=== PATIENT | male | born 1945 | race African-American/Black ===

== ENCOUNTER 2017-01-05 11:45 | Emergency (ER) | payer MEDICARE, OTHER ==
[~2017-01-05] VITALS: Ht 188 cm; Wt 89.8 kg
[2017-01-05 13:56] LABS: APPEARANCE,URINE SLIGHTLY CLOUDY; KETONES,URINE NEGATIVE (NEGATIVE); LEUKOCYTE ESTERASE ,URINE 1+ (NEGATIVE); NITRITE,URINE NEGATIVE (NEGATIVE); PH,URINE 8 (4.5-8.0); PROTEIN,URINE NEGATIVE (NEGATIVE); UROBILINOGEN,URINE NORMAL MG/DL (0.0-1.0)
[2017-01-05 14:04] LABS: BACTERIA,URINE FEW /HPF; RBC,URINE 30-40 /HPF (0 - 0); SQUAMOUS EPITHELIAL CELL,UR OCCASIONAL /LPF (NONE/OCC)
--- NOTE | 2017-01-05 14:10 | Emergency Room Report ---
History of Present Illness General Chief Complaint: Male Urogenital Problems Source: Patient, Family Member Present Illness HPI This patient states that he has had difficulty urinating. He is on home hospice. He denies fever or chills. He denies nausea or vomiting. He has had dysuria but no hematuria. He denies abdominal pain. He denies a sensation of fullness in his lower abdomen. He has no other complaints. Patient History Past Medical History: see triage record, dementia Social History: Denies: smoking, alcohol use, drug use Reviewed Nursing Documentation: PMH: Agreed, PSxH: Agreed Review of Systems All Other Systems: negative except mentioned in HPI Physical Exam Sp02 EP Interpretation: reviewed, normal General Appearance: no apparent distress, alert, GCS 15, non-toxic Head: normocephalic, atraumatic Eyes: bilateral eye normal inspection, bilateral eye PERRL ENT: hearing grossly normal, normal pharynx, no angioedema, normal voice Neck: full range of motion, supple/symm/no masses Respiratory: chest non-tender, lungs clear, normal breath sounds, speaking full sentences Cardiovascular #1: regular rate, rhythm, no edema Gastrointestinal: normal bowel sounds, non tender, soft, non-distended, no guarding, no rebound Rectal: deferred Musculoskeletal: back normal, gait/station normal, normal range of motion, non- tender Neurologic: alert, responsive, motor strength/tone normal, sensory intact, speech normal Psychiatric: mood/affect normal, no suicidal/homicidal ideation Skin: normal color, no rash, warm/dry, well hydrated Medical Decision Making Diagnostic Impression: Primary Impression: Urinary hesitancy ER Course This patient presents with urinary hesitancy. I had planned to place a Escamilla catheter, however, when the nurse was attempting to place the catheter the patient had the sensation to urinate and was able to urinate without difficulty. There was no bladder fullness and no evidence of infection on urinalysis. Likely this patient has an enlarged prostate. I will start the patient on Flomax. The patient is instructed to followup with his primary care physician. Laboratory Tests Test 01/05/17 13:18 Urine Color Pale yellow Urine Appearance Slightly cloudy Urine pH 8 (4.5-8.0) Urine Specific [place] 1.010 (1.005-1.035) Urine Protein Negative (NEGATIVE) Urine Glucose (UA) Negative (NEGATIVE) Urine Ketones Negative (NEGATIVE) Urine Occult Blood 5+ (NEGATIVE) H Urine Nitrite Negative (NEGATIVE) Urine Bilirubin Negative (NEGATIVE) Urine Urobilinogen Normal MG/DL (0.0-1.0) Urine Leukocyte Esterase 1+ (NEGATIVE) H Urine RBC 30-40 /HPF (0 - 0) H Urine WBC 2-4 /HPF (0 - 0) Urine Squamous Epithelial Cells Occasional /LPF Urine Bacteria Few /HPF (NONE) Disposition: HOME, SELF-CARE Condition: Improved Referrals: NON PHYSICIAN (PCP) JUAN PABLO ANSARI D.O. Jan 05, 2017 14:10
[2017-01-05] MEDS ORDERED: FLOMAX0.4 MG ORAL (14:21)
[2017-01-05 14:48] VITALS: BP 126/84
== END 2017-01-05 14:48 | disposition home or self-care (01) ==
LOC: EMR 13:07
DX: R39.11 Hesitancy of micturition (principal)
CPT/HCPCS: 51702; 81001; 99283

== ENCOUNTER 2018-10-14 14:25 | Inpatient (IN) | payer MEDICARE, OTHER ==
[~2018-10-14] VITALS: Ht 185.4 cm; Wt 89.4 kg
[~2018-10-14 14:25] MED LIST: FLOMAX0.4 MG ORAL
--- NOTE | 2018-10-14 14:33 | Emergency Room Report ---
History of Present Illness General Chief Complaint: Syncope Source: EMS Present Illness HPI 73-year-old male possible history of hypertension, TIA, Alzheimer's, dementia presents with presyncopal episode prior to arrival, patient was witnessed by his , patient sat himself down when he was about to pass out, he did not hit his head, no official LOC, this lasted minutes, his called 911, no known aggravating or alleviating factors, no known pain. Patient is noncommunicative, reports that he is a little more altered than usual Allergies: Coded Allergies: No Known Allergies (Unverified , 10/14/18) Patient History Limited by: medical condition - Dementia Past Medical History: see triage record Reviewed Nursing Documentation: PMH: Agreed; PSxH: Agreed Nursing Documentation-PMH Past Medical History: No History, Except For Hx Cardiac Problems: No Hx Hypertension: No Hx Pacemaker: No Hx Asthma: No Hx COPD: No Hx Diabetes: No Hx Cancer: No Hx Gastrointestinal Problems: No Hx Dialysis: No Hx Neurological Problems: Yes - Alzheimers and dementia Hx Cerebrovascular Accident: No Hx Seizures: No Review of Systems All Other Systems: limited - Demented Physical Exam Vital Signs Date Time Temp Pulse Resp B/P (MAP) Pulse Ox O2 Delivery O2 Flow Rate FiO2 10/14/18 14:19 97.5 85 20 119/84 (96) 98 Room Air Sp02 EP Interpretation: reviewed, normal General Appearance: well appearing, no apparent distress, alert Head: normocephalic, atraumatic Eyes: bilateral eye PERRL, bilateral eye EOMI ENT: uvula midline, moist mucus membranes Neck: supple, thyroid normal, supple/symm/no masses Respiratory: lungs clear, no respiratory distress, no retraction, no accessory muscle use Cardiovascular #1: normal peripheral pulses, regular rate, rhythm, no edema, no gallop, no murmur Gastrointestinal: non tender, soft, no guarding, no rebound Musculoskeletal: normal inspection Neurologic: alert, other - Moving all 4 extremities Psychiatric: mood/affect normal Skin: no rash, warm/dry Medical Decision Making Diagnostic Impression: Primary Impression: Syncope Additional Impression: Non-ST elevation GA (NSTEMI) ER Course 73-year-old male presents with presyncopal episode, EKG shows no focal findings , patient found to have an elevated troponin, Lovenox was given, aspirin was given, patient with a possible UTI ceftriaxone was given, patient will be admitted to the hospital for hemodynamic monitoring and telemetry telemetry. Patient endorsed to Dr. Pope Laboratory Tests Test 10/14/18 15:00 White Blood Count 5.6 K/UL (4.8-10.8) Red Blood Count 4.96 M/UL (4.70-6.10) Hemoglobin 15.5 G/DL (14.2-18.0) Hematocrit 45.5 % (42.0-52.0) Mean Corpuscular Volume 92 FL (80-99) Mean Corpuscular Hemoglobin 31.2 PG (27.0-31.0) H Mean Corpuscular Hemoglobin Concent 34.0 G/DL (32.0-36.0) Red Cell Distribution Width 11.6 % (11.6-14.8) Platelet Count 192 K/UL (150-450) Mean Platelet Volume 6.0 FL (6.5-10.1) L Neutrophils (%) (Auto) 66.3 % (45.0-75.0) Lymphocytes (%) (Auto) 21.7 % (20.0-45.0) Monocytes (%) (Auto) 10.6 % (1.0-10.0) H Eosinophils (%) (Auto) 0.2 % (0.0-3.0) Basophils (%) (Auto) 1.2 % (0.0-2.0) Prothrombin Time 11.9 SEC (9.30-11.50) H Prothrombin Time INR 1.1 (0.9-1.1) PTT 29 SEC (23-33) Urine Color Yellow Urine Appearance Slightly cloudy Urine pH 6 (4.5-8.0) Urine Specific [place] 1.020 (1.005-1.035) Urine Protein 1+ (NEGATIVE) H Urine Glucose (UA) Negative (NEGATIVE) Urine Ketones Negative (NEGATIVE) Urine Blood 1+ (NEGATIVE) H Urine Nitrite Negative (NEGATIVE) Urine Bilirubin Negative (NEGATIVE) Urine Urobilinogen Normal MG/DL (0.0-1.0) Urine Leukocyte Esterase 1+ (NEGATIVE) H Urine RBC 2-4 /HPF (0 - 0) H Urine WBC 0-2 /HPF (0 - 0) Urine Squamous Epithelial Cells Few /LPF (NONE/OCC) Urine Bacteria Few /HPF (NONE) Sodium Level 142 MMOL/L (136-145) Potassium Level 3.9 MMOL/L (3.5-5.1) Chloride Level 106 MMOL/L (98-107) Carbon Dioxide Level 25 MMOL/L (21-32) Anion Gap 11 mmol/L (5-15) Blood Urea Nitrogen 12 mg/dL (7-18) Creatinine 1.2 MG/DL (0.55-1.30) Estimate Glomerular Filtration Rate mL/min (>60) Glucose Level 108 MG/DL (74-106) H Calcium Level 9.9 MG/DL (8.5-10.1) Total Bilirubin 0.6 MG/DL (0.2-1.0) Aspartate Amino Transferase (AST) 19 U/L (15-37) Alanine Aminotransferase (ALT) 21 U/L (12-78) Alkaline Phosphatase 67 U/L (46-116) Total Creatine Kinase 114 U/L (26-308) Creatine Kinase MB 0.5 NG/ML (0.0-3.6) Creatine Kinase MB Relative Index 0.4 Troponin I 0.122 ng/mL (0.000-0.056) Pro-B-Type Natriuretic Peptide 24 pg/mL (0-125) Total Protein 8.1 G/DL (6.4-8.2) Albumin 3.7 G/DL (3.4-5.0) Globulin 4.4 g/dL Albumin/Globulin Ratio 0.8 (1.0-2.7) L Lipase 77 U/L (73-393) EKG Diagnostic Results EKG Time: 14:42 EP Interpretation: NSR rate 83 qtc 415, normal axis, no acute st elevations Rate: normal Rhythm: NSR ST Segments: no acute changes Rhythm Strip Diag. Results Rhythm Strip Time: 14:39 EP Interpretation: yes Rate: 84 Rhythm: NSR, no PVC's, no ectopy Last Vital Signs Date Time Temp Pulse Resp B/P (MAP) Pulse Ox O2 Delivery O2 Flow Rate FiO2 10/14/18 14:19 97.5 85 20 119/84 (96) 98 Room Air Disposition: ADMITTED INPATIENT Condition: Improved Dakota Hill M.D. Oct 14, 2018 14:33
[2018-10-14] MEDS ORDERED: FLOMAX0.4 MG ORAL (14:35)
[2018-10-14] MEDS ORDERED: CELEXA20 MG ORAL (14:35)
[2018-10-14] MEDS ORDERED: trazadone (14:35)
[2018-10-14] MEDS ORDERED: ASPIRIN81 MG ORAL (14:35)
[2018-10-14 14:49] VITALS: BP 119/84
--- NOTE | 2018-10-14 14:50 | NUR ---
ED Nurse Note:pt. was BIBA from home he had syncopal episode while walking, VSS no signs of distress, pt. is confused, placed on athletic monitor, blood sent to labs
--- NOTE | 2018-10-14 15:02 | NUR ---
ED Nurse Note:urine sent to labs, pt. went to CT scan
[2018-10-14 15:27] LABS: APPEARANCE,URINE SLIGHTLY CLOUDY; BILIRUBIN, URINE NEGATIVE (NEGATIVE); GLUCOSE, URINE (UA) NEGATIVE (NEGATIVE); KETONES,URINE NEGATIVE (NEGATIVE); LEUKOCYTE ESTERASE ,URINE 1+ (NEGATIVE); NITRITE,URINE NEGATIVE (NEGATIVE); PH,URINE 6 (4.5-8.0); PROTEIN,URINE 1+ (NEGATIVE); UROBILINOGEN,URINE NORMAL MG/DL (0.0-1.0)
[2018-10-14 15:28] LABS: INR 1.1 (0.9-1.1)
[2018-10-14 15:30] LABS: COLOR,URINE YELLOW
--- NOTE | 2018-10-14 15:30 | Diagnostic Imaging Report ---
Indication: Syncope Technique: Contiguous 5 mm thick transaxial imaging of the head obtained in a Siemens Sensation [address] scanner. Soft tissue and bone windows generated. Automatic Exposure Control was utilized. Total Dose length Product (DLP): 1375.[address] Dose Index Volume (CTDIvol): 70.38 mGy Comparison: none Findings: There is moderate prominence of the ventricles, basal cisterns, and cerebral sulci consistent with atrophy. Moderate, nonspecific, white matter hypoattenuation is noted throughout the brain consistent with chronic small vessel disease. There is no midline shift, edema, acute hemorrhage, mass effect, or abnormal extra-axial fluid collections. Bones are unremarkable. Impression: No acute intracranial bleed, mass effect or edema. Moderate atrophy of the brain. Evidence of chronic small vessel disease involving white matter tracts. The CT scanner at [facility] is accredited by the [employer] and the scans are performed using dose optimization techniques as appropriate to a performed exam including Automatic Exposure control.
[2018-10-14 15:32] LABS: BASOPHILS % (AUTO) 1.2 % (0.0-2.0); EOSINOPHILS % (AUTO) 0.2 % (0.0-3.0); HEMATOCRIT 45.5 % (42.0-52.0); HEMOGLOBIN 15.5 G/DL (14.2-18.0); LYMPHOCYTES % (AUTO) 21.7 % (20.0-45.0); MEAN CORPUSCULAR VOLUME 92 FL (80-99); MONOCYTES % (AUTO) 10.6 % (1.0-10.0); NEUTROPHILS % (AUTO) 66.3 % (45.0-75.0); PLATELET COUNT 192 K/UL (150-450); RED BLOOD COUNT 4.96 M/UL (4.70-6.10); RED CELL DISTRIBUTION WIDTH 11.6 % (11.6-14.8); WHITE BLOOD COUNT 5.6 K/UL (4.8-10.8)
--- NOTE | 2018-10-14 15:45 | Diagnostic Imaging Report ---
Indication: Dyspnea Comparison: None A single view chest radiograph was obtained. Findings: No definite infiltrate or pulmonary vascular congestion identified. The heart is borderline enlarged. The aorta is mildly enlarged consistent with atherosclerotic vascular disease. The bones are unremarkable. Impression: No acute disease
--- NOTE | 2018-10-14 15:50 | NUR ---
Lindsey Patient's [phone]
[2018-10-14 15:52] LABS: ANION GAP 11 mmol/L (5-15); BLOOD UREA NITROGEN 12 mg/dL (7-18); CALCIUM 9.9 MG/DL (8.5-10.1); CARBON DIOXIDE 25 MMOL/L (21-32); CHLORIDE 106 MMOL/L (98-107); CREATININE 1.2 MG/DL (0.55-1.30); POTASSIUM 3.9 MMOL/L (3.5-5.1); SODIUM 142 MMOL/L (136-145)
[2018-10-14 16:06] LABS: ALANINE AMINOTRANSFERASE 21 U/L (12-78); ALBUMIN 3.7 G/DL (3.4-5.0); ALBUMIN/GLOBULIN RATIO 0.8 (1.0-2.7); ALKALINE PHOSPHATASE 67 U/L (46-116); ASPARTATE AMINO TRANSFERASE 19 U/L (15-37); BILIRUBIN,TOTAL 0.6 MG/DL (0.2-1.0); CKMB 0.5 NG/ML (0.0-3.6); CREATINE KINASE 114 U/L (26-308)
[2018-10-14] MEDS ORDERED: Enoxaparin 100mg Inj SUBQ ONE (16:15)
--- NOTE | 2018-10-14 16:25 | NUR ---
ED Nurse Note: Patient at no distress at this time
[2018-10-14 16:27] VITALS: BP 113/82
[2018-10-14] MEDS ORDERED: cefTRIAXone 1 GM in NS 55 ML IVPB ONE (16:30)
--- NOTE | 2018-10-14 16:45 | NUR ---
TRANSFER TO FLOOR: Patient transferred to Telemetry as ordered, per . Report Given to NICOLE Dickerson
[2018-10-14] MEDS ORDERED: Enalaprilat 1.25mg/ml Inj IV PRN (17:15)
[2018-10-14] MEDS ORDERED: Morphine Sulfate 2mg/ml Inj(IV/IM USE ONLY) IVP PRN (17:15)
[2018-10-14] MEDS ORDERED: Nitroglycerin Subl 0.4mg tab SL PRN (17:15)
[2018-10-14] MEDS ORDERED: dilTIAZem HCl 25mg/5ml Inj IV PRN (17:15)
[2018-10-14] MEDS ORDERED: Albuterol/Ipratropium 3ml neb HHN PRN (17:15)
[2018-10-14] MEDS ORDERED: Miralax 17gm pkt ORAL PRN (17:15)
--- NOTE | 2018-10-14 19:22 | NUR ---
HAND-OFF: Report given to YANETH COSTA.
--- NOTE | 2018-10-14 19:25 | NUR ---
NURSE NOTES: Received report from Nikkie Anguiano RN. Patient in bed AAO X1-2 with episodes of confusion at times. No S/S of acute pain or discomfort noted. Kept clean, dry, and comfortable in bed. IV line intact and patent SL with continuous cardiac monitoring per protocol. Able to ambulate with assistance but offered to use bedside urinal instead. Needs and wants anticipated and attended. Will continue plan of care and monitor for any changes noted.
--- NOTE | 2018-10-14 19:31 | Cardiology Progress Note ---
Assessment/Plan Assessment/Plan [id number] ? syncope minor trop abn hs of vascualr dementia and tia repeat cardiaenzyme adn ekg and echo ivf will follow Objective Last 24 Hour Vital Signs Date Time Temp Pulse Resp B/P (MAP) Pulse Ox O2 Delivery O2 Flow Rate FiO2 10/14/18 17:45 Room Air 10/14/18 16:45 97.8 79 20 125/82 98 Room Air 10/14/18 16:27 97.5 76 20 113/82 98 Room Air 10/14/18 14:49 97.5 80 20 119/84 98 Room Air 10/14/18 14:19 97.5 85 20 119/84 (96) 98 Room Air Laboratory Tests Test 10/14/18 15:00 White Blood Count 5.6 K/UL (4.8-10.8) Red Blood Count 4.96 M/UL (4.70-6.10) Hemoglobin 15.5 G/DL (14.2-18.0) Hematocrit 45.5 % (42.0-52.0) Mean Corpuscular Volume 92 FL (80-99) Mean Corpuscular Hemoglobin 31.2 PG (27.0-31.0) H Mean Corpuscular Hemoglobin Concent 34.0 G/DL (32.0-36.0) Red Cell Distribution Width 11.6 % (11.6-14.8) Platelet Count 192 K/UL (150-450) Mean Platelet Volume 6.0 FL (6.5-10.1) L Neutrophils (%) (Auto) 66.3 % (45.0-75.0) Lymphocytes (%) (Auto) 21.7 % (20.0-45.0) Monocytes (%) (Auto) 10.6 % (1.0-10.0) H Eosinophils (%) (Auto) 0.2 % (0.0-3.0) Basophils (%) (Auto) 1.2 % (0.0-2.0) Prothrombin Time 11.9 SEC (9.30-11.50) H Prothromb Time International Ratio 1.1 (0.9-1.1) Activated Partial Thromboplast Time 29 SEC (23-33) Urine Color Yellow Urine Appearance Slightly cloudy Urine pH 6 (4.5-8.0) Urine Specific [place] 1.020 (1.005-1.035) Urine Protein 1+ (NEGATIVE) H Urine Glucose (UA) Negative (NEGATIVE) Urine Ketones Negative (NEGATIVE) Urine Blood 1+ (NEGATIVE) H Urine Nitrite Negative (NEGATIVE) Urine Bilirubin Negative (NEGATIVE) Urine Urobilinogen Normal MG/DL (0.0-1.0) Urine Leukocyte Esterase 1+ (NEGATIVE) H Urine RBC 2-4 /HPF (0 - 0) H Urine WBC 0-2 /HPF (0 - 0) Urine Squamous Epithelial Cells Few /LPF (NONE/OCC) Urine Bacteria Few /HPF (NONE) Sodium Level 142 MMOL/L (136-145) Potassium Level 3.9 MMOL/L (3.5-5.1) Chloride Level 106 MMOL/L (98-107) Carbon Dioxide Level 25 MMOL/L (21-32) Anion Gap 11 mmol/L (5-15) Blood Urea Nitrogen 12 mg/dL (7-18) Creatinine 1.2 MG/DL (0.55-1.30) Estimat Glomerular Filtration Rate mL/min (>60) Glucose Level 108 MG/DL (74-106) H Calcium Level 9.9 MG/DL (8.5-10.1) Total Bilirubin 0.6 MG/DL (0.2-1.0) Aspartate Amino Transf (AST/SGOT) 19 U/L (15-37) Alanine Aminotransferase (ALT/SGPT) 21 U/L (12-78) Alkaline Phosphatase 67 U/L (46-116) Total Creatine Kinase 114 U/L (26-308) Creatine Kinase MB 0.5 NG/ML (0.0-3.6) Creatine Kinase MB Relative Index 0.4 Troponin I 0.122 ng/mL (0.000-0.056) Pro-B-Type Natriuretic Peptide 24 pg/mL (0-125) Total Protein 8.1 G/DL (6.4-8.2) Albumin 3.7 G/DL (3.4-5.0) Globulin 4.4 g/dL Albumin/Globulin Ratio 0.8 (1.0-2.7) L Lipase 77 U/L (73-393) Ambrosio Chino MD Oct 14, 2018 19:31
[2018-10-14 20:00] VITALS: BP 117/83
--- NOTE | 2018-10-14 20:30 | NUR ---
NURSE NOTES: Trop lvl at 0.124 per Sada Reyes (Lab)
[2018-10-14] MEDS ORDERED: Heparin 5000 units/ml inj SUBQ SCH (21:00)
--- NOTE | 2018-10-14 22:00 | NUR ---
AMA: SEE AMA FORM. Explained risks and benefits, still insisted on leaving AMA. MD notified and aware.
--- NOTE | 2018-10-14 23:15 | Consultation ---
DATE OF CONSULTATION: 10/14/2018 CARDIAC CONSULTATION CONSULTING PHYSICIAN: Ambrosio Chino M.D. REFERRING PHYSICIAN: Shanna Ashby M.D. REASON FOR REFERRAL: Syncope. HISTORY OF PRESENT ILLNESS: This is an elderly gentleman who is really not able to provide any meaningful history. The patient is here with his who is providing most of the information. The patient with history of vascular dementia. A few weeks ago, he had a similar episode to what happened today, although it was not nearly as long or involvement of loss of consciousness. At that time, he was taken to [facility]. No workup was initiated, but they thought it was related to probably either a transient ischemic attack or part of his chronic recurrent vascular dementia. The patient today was walking to the bathroom and he suddenly became diaphoretic and fell on the floor and did not really hit his head anywhere. He was not responsive and he was almost completely out for a few minutes. His called the paramedics. The patient was diaphoretic and the patient was checked by paramedics and they picked him up, put him in a chair and eventually put him in a gurney, and brought him to the emergency room. [facility] run sheet unfortunately is not available for my review and information was obtained from discussion with the patient's and from review of the emergency room physician's notation. His blood pressure on arrival in the emergency room was 119/84 with heart rate of 85. According to his , when the paramedics checked him, there were no problems found, but they thought that they should take him to the hospital to get checked out. PAST MEDICAL HISTORY: Positive for history of prostatic enlargement, vascular dementia, and transient ischemic attacks. No history of diabetes, high blood pressure, heart attack, cancer, hepatitis, tuberculosis, asthma, or emphysema. No ulcers. No kidney problems, liver problems, thyroid problems, anemia, arthritis, HIV, AIDS, or any blood clots. SOCIAL HISTORY: He quit smoking one year ago and after 50 pack years. He does not drink. Does not use drugs. He is an artist. REVIEW OF SYSTEMS: GASTROINTESTINAL: According to his , there has not been any nausea, vomiting, diarrhea, bloody or black stools recently. GENITOURINARY: Never complains of discomfort on urination. PULMONARY: No coughing or wheezing. CONSTITUTIONAL: No fevers, chills, or night sweats. NEUROLOGIC: As mentioned in HPI. CARDIAC: No complaints of any chest pain and the episode of almost passing out is the first one he has ever had. PHYSICAL EXAMINATION: GENERAL: Shows to be tall gentleman, in no respiratory distress. He is not communicative verbally, but is awake and responsive. He was trying to get out of bed initially, but really was unable to. NECK: Supple. No jugular venous distention. LUNGS: Clear to auscultation and percussion. CARDIAC: S1 is normal. S2 is normal. Regular rate and rhythm. No heaves, thrills, or gallops noted. ABDOMEN: Soft, nontender. Positive bowel sounds. EXTREMITIES: There is no edema. NEUROLOGICAL: He is awake and responsive, but not communicative or verbal. LABORATORY AND DIAGNOSTIC DATA: White count of 5.6, hemoglobin 15.5, and platelet count of 192,000. Sodium is 142, potassium 3.9, chloride 106, bicarbonate 25, BUN 12, creatinine 1.2, and glucose of 108. His troponin 0.132. His liver function tests are normal and his lipase was 77. Coags, INR 1.1 and PTT of 29. Urinalysis is fairly unremarkable with 1+ protein, 1+ leukocyte esterase, 2-[address] scan of the head was performed and reportedly showed no acute intracranial bleed, mass effect, or trauma. His chest x-ray was performed in the emergency room as well and showed no acute disease processes. The EKGs that are available show normal sinus rhythm, normal QRS axis, no ST or T-wave abnormalities. These EKGs are also similar to what the paramedics obtained in his house. ASSESSMENT AND PLAN: 1. Transient alteration of consciousness. 2. History of vascular dementia. 3. History of transient ischemic attack. 4. Prostatic hypertrophy. This patient was seen in cardiac consultation. The patient had what appears to be a near-syncopal episode that he completely passed out, but his blood pressure here in the emergency room has been fine. According to his , when the paramedics checked him, she was told that all of his vitals were normal though difficult to tell whether there are any cardiovascular issues that may have caused him to become hypotensive or bradycardic to cause a syncopal episode. I do agree with monitoring overnight. An echocardiogram will be ordered and orthostatic vitals will be attempted. EKG will be repeated. His cardiac enzymes are minimally abnormal, maybe a demand-related issue although further testing may be necessary. Serial enzymes will be checked again in the morning in addition to his LV function. I am not sure if the patient will be a candidate for any kind of therapy. He has a POLST form in the chart indicating that he does not want to be resuscitated and he has wished selective treatment and no artificial means of nutrition according to the POLST form. We will discuss options further with the patient's from a cardiac point of view. Dr. Ashby and Dr. Pope, thank you for allowing me to participate in the care of this patient. Ambrosio Chino M.D. DR: Rae JOB#: [id number] CC:
--- NOTE | 2018-10-15 07:43 | History & Physical ---
History and Physical History & Physicial patient left Bhavana Bauer NP Oct 15, 2018 07:43
--- NOTE | 2018-10-15 07:51 | Discharge Summary ---
Discharge Summary Discharge Summary _ DATE OF ADMISSION: 10/14/2018 DATE OF DISCHARGE: 10/14/2018 CONSULTANTS: Dr. Ambrosio Ashyb BRIEF HOSPITAL COURSE: Patient is a 73-year-old male who was brought in by EMS due to presyncopal episode prior to arrival. Patient was witnessed by , patient sat himself down when he was about to pass out. He did not hit his head. There was no loss of consciousness. Event lasted several minutes and called 911. There was no known aggravating or relieving factors. He was also noted to be a little more altered than usual. He has medical history significant for vascular dementia, prostatic enlargement, TIA. On evaluation at ED, vital signs were stable. Blood work did not show any leukocytosis. Hemoglobin and hematocrit were stable. Electrolytes were normal. Troponin was elevated to 0.122. Urinalysis showed +1 leukocyte esterase, 2-4 urine RBC, 0-2 urine WBC. He was given aspirin and Lovenox due to elevated troponin. He was started empirically on ceftriaxone for possible UTI. He was admitted to telemetry for evaluation of syncope and non-ST elevated PR. He was seen by global account manager. Patient reported that he had similar episodes few weeks back, and was taken to [facility] that time. No work-up was initiated, as it was thought to be probably related to either TIA or part of his chronic recurrent vascular dementia. They stated on the day of admission, patient was walking to the bathroom and suddenly became diaphoretic and fell on the floor. He was not responsive and was almost completely out for a few minutes. He was placed on the heart monitor. Cardiac enzymes were monitored. Orthostatic vitals were checked. Echocardiogram was ordered. Full treatment was not carried out as patient left against medical advise. FINAL DIAGNOSES: Transient alteration of consciousness Vascular dementia History of TIA Prostatic hypertrophy DISPOSITION: Patient left against medical advise. I have been assigned to complete a discharge summary on this account, I was not involved with the patient's management.--MAYCOL Barnes Jacqueline Robles NP Oct 15, 2018 07:51
[2018-10-15] MEDS ORDERED: Aspirin Baby 81mg ORAL SCH (09:00)
== END 2018-10-14 22:05 | disposition left against medical advice (07) | DRG 884 ==
LOC: EDBD 14:25 → EMR 15:29 → 2E 15:35 → EDBEDREQ 16:15
DX: R40.4 Transient alteration of awareness (principal); F01.50 Vascular dementia, unspecified severity, without behavioral disturbance, psychotic disturbance, mood disturbance, and anxiety; R55 Syncope and collapse; Z86.73 Personal history of transient ischemic attack (TIA), and cerebral infarction without residual deficits; N40.0 Benign prostatic hyperplasia without lower urinary tract symptoms; Z87.891 Personal history of nicotine dependence; Z66 Do not resuscitate
CPT/HCPCS: 36415; 70450; 71045; 80053; 81003; 82550; 82553; 83690; 83880; 84484; 85025; 85610; 85730; 93005; 96361; 96365; 99285